=== PATIENT | female | born 1945 | race Two or more races ===

== ENCOUNTER 2023-05-26 11:41 | Emergency (ER) | payer OTHER ==
[~2023-05-26] VITALS: Ht 160 cm; Wt 73.0 kg
[2023-05-26] MEDS ORDERED: LIPITOR40 MG (12:00)
[2023-05-26] MEDS ORDERED: FEXOFENADINE HC60 MG PO (12:02)
[2023-05-26] MEDS ORDERED: OMEPRAZOLE-BIC1 EACH (12:03)
[2023-05-26] MEDS ORDERED: BACTRIM DS TAB1 EACH (12:03)
[2023-05-26] MEDS ORDERED: OMEPRAZOLE20 MG (12:03)
[2023-05-26] MEDS ORDERED: MAGNESIUM400 MG (12:04)
[2023-05-26 14:11] LABS: HEMATOCRIT 34.6 % (36.0-45.00); HEMOGLOBIN 11.9 g/dL (12.0-15.00); MEAN CELL VOLUME 86.7 fL (80.00-100.00); MEAN CORPUSCULAR HEMOGLOBIN 29.8 pg (27.00-32.0); MEAN CORPUSCULAR HGB CONC 34.4 g/dl (32.0-36.0); PLATELET COUNT 358 K/uL (150-450); RED CELL DISTRIBUTION WIDTH 13.9 % (11.5-14.5)
[2023-05-26 14:14] LABS: PH,URINE 7.5 (5.0-8.0); URINE APPEARANCE Clear; URINE BILIRRUBIN Negative (NEGATIVE); URINE BLOOD Negative; URINE COLOR Yellow; URINE GLUCOSE Negative (NEGATIVE); URINE LEUKOCYTE Negative; URINE NITRATE Negative; URINE PROTEIN Negative (NEGATIVE); URINE UROBILINOGEN 0.2 E.U./dl
[2023-05-26 14:21] LABS: URINE BACTERIA 1.2 uL (0.0-1933); URINE EPITHELIAL CELLS 1.3 uL (0.0-38.8); URINE RBC 1.4 uL (0.0-20.8); URINE WBC 0.6 uL (0.0-23.2)
[2023-05-26 14:33] LABS: ALBUMIN 3.3 gm/dL (3.4-5.0); BILIRUBIN TOTAL 0.41 mg/dL (0.3-1.2); CREATININE SERUM 0.89 mg/dL (0.55-1.02); GFR 61.83; GLOBULINA 3.8 G/DL (2.4-3.5); POTASSIUM 3.32 mEq/L (3.5-5.1); TOTAL PROTEIN 7.1 gm/dL (6.4-8.2)
== END 2023-05-26 22:33 | disposition home or self-care (01) ==
LOC: ER 11:42
PROVIDERS: Emergency Medicine
DX: L03.129 Acute lymphangitis of unspecified part of limb (principal); R11.0 Nausea; Z20.822 Contact with and (suspected) exposure to COVID-19
CPT/HCPCS: 36415; 71046; 71250; 96365; 99284; J3370

== ENCOUNTER 2023-05-27 16:06 | Inpatient (IN) | payer OTHER ==
[~2023-05-27] VITALS: Ht 157.5 cm; Wt 59.9 kg
[~2023-05-27 16:06] MED LIST: BACTRIM DS TAB1 EACH; FEXOFENADINE HC60 MG PO; LIPITOR40 MG; MAGNESIUM400 MG; OMEPRAZOLE-BIC1 EACH; OMEPRAZOLE20 MG
[2023-05-27 18:19] LABS: HEMOGLOBIN 11.4 g/dL (12.0-15.00); MEAN CELL VOLUME 86.4 fL (80.00-100.00); MEAN CORPUSCULAR HEMOGLOBIN 29.9 pg (27.00-32.0); MEAN CORPUSCULAR HGB CONC 34.6 g/dl (32.0-36.0); PLATELET COUNT 361 K/uL (150-450); RED BLOOD COUNT 3.82 M/uL (4.00-6.00); RED CELL DISTRIBUTION WIDTH 13.7 % (11.5-14.5)
[2023-05-27 18:51] LABS: ALBUMIN 3.2 gm/dL (3.4-5.0); BILIRUBIN TOTAL 0.35 mg/dL (0.3-1.2); CALCIUM 8.5 mg/dL (8.5-10.1); CREATININE SERUM 0.91 mg/dL (0.55-1.02); GFR 60.26; GLOBULINA 3.6 G/DL (2.4-3.5); POTASSIUM 3.26 mEq/L (3.5-5.1); TOTAL PROTEIN 6.8 gm/dL (6.4-8.2)
[2023-05-27 20:58] LABS: ERYTHROCYTE SEDIMENTATION RATE 45 mm/hr
[2023-05-27 21:02] LABS: INR 1.25; PARTIAL THROMBOPLASTIN TIME 28.2 SECONDS (22.0-34.0); PROTHROMBIN TIME 12.9 SECONDS (9.0-11.5)
[2023-05-27 21:28] LABS: NASAL SMEAR NONE EOS SEEN
[2023-05-28 01:35] LABS: URINE APPEARANCE Clear; URINE BILIRRUBIN Negative (NEGATIVE); URINE BLOOD Negative; URINE COLOR Yellow; URINE GLUCOSE Negative (NEGATIVE); URINE LEUKOCYTE Negative; URINE NITRATE Negative; URINE PROTEIN Negative (NEGATIVE); URINE UROBILINOGEN 0.2 E.U./dl
[2023-05-28 02:19] LABS: URINE BACTERIA 3.7 uL (0.0-1933); URINE EPITHELIAL CELLS 1.2 uL (0.0-38.8); URINE RBC 1.5 uL (0.0-20.8)
[2023-05-29 06:50] LABS: HEMATOCRIT 31.7 % (36.0-45.00); HEMOGLOBIN 11.2 g/dL (12.0-15.00); MEAN CELL VOLUME 86.8 fL (80.00-100.00); MEAN CORPUSCULAR HEMOGLOBIN 30.6 pg (27.00-32.0); MEAN CORPUSCULAR HGB CONC 35.3 g/dl (32.0-36.0); PLATELET COUNT 380 K/uL (150-450); RED BLOOD COUNT 3.65 M/uL (4.00-6.00)
[2023-05-29 07:24] LABS: ALBUMIN 2.9 gm/dL (3.4-5.0); BILIRUBIN TOTAL 0.31 mg/dL (0.3-1.2); CALCIUM 8.5 mg/dL (8.5-10.1); CREATININE SERUM 0.85 mg/dL (0.55-1.02); GFR 65.2; POTASSIUM 4.22 mEq/L (3.5-5.1); TOTAL PROTEIN 5.9 gm/dL (6.4-8.2)
== END 2023-05-30 14:13 | disposition home or self-care (01) | DRG 603 ==
LOC: ER 16:06 → MEDJ 18:31
PROVIDERS: General Practice; ADMIT Internal Medicine; ATTEND Internal Medicine
DX: L03.113 Cellulitis of right upper limb (principal); I89.0 Lymphedema, not elsewhere classified; R50.9 Fever, unspecified

== ENCOUNTER 2023-06-18 08:38 | Outpatient (CLI) | payer OTHER | END 2023-06-18 08:45 | disposition home or self-care (01) | LOC: TOM 08:38 | PROVIDERS: ATTEND General Practice | DX: R07.9 Chest pain, unspecified (principal); R10.9 Unspecified abdominal pain ==

== ENCOUNTER 2023-06-25 09:30 | Outpatient (CLI) | payer OTHER | END 2023-06-25 09:43 | disposition home or self-care (01) | LOC: TOM 09:30 | DX: L03.113 Cellulitis of right upper limb (principal) | CPT/HCPCS: 73201; Q9965 ==